=== PATIENT | female | born 1995 | race African-American/Black ===

== ENCOUNTER 2017-01-30 02:04 | Emergency (ER) | payer SELFPAY ==
[~2017-01-30] VITALS: Ht 165.1 cm; Wt 60.5 kg
[2017-01-30 02:14] VITALS: Ht 165.1 cm; Wt 60.5 kg
[2017-01-30 03:09] LABS: ADD SCAN DIFF NO
[2017-01-30 03:11] LABS: BASOPHIL # 0.1 10^3/ul (0.0-0.1); BASOPHILS % 0.5 % (0.0-2.0); EOSINOPHILS # 0.6 10^3/ul (0.0-0.5); EOSINOPHILS % 5.3 % (0.0-7.0); HEMOGLOBIN 13.6 g/dl (12.0-16.0); LYMPHOCYTES # 3.5 10^3/ul (0.8-2.9); LYMPHOCYTES % 32.7 % (15.0-51.0); MEAN CORPUSCULAR HEMOGLOBIN 31.6 pg (29.0-33.0); MEAN CORPUSCULAR HGB CONC 33.2 g/dl (32.0-37.0); MEAN CORPUSCULAR VOLUME 95.1 fl (82.0-101.0); MEAN PLATELET VOLUME 8.8 fl (7.4-10.4); MONOCYTE # 0.7 10^3/ul (0.3-0.9); MONOCYTES % 6.2 % (0.0-11.0); NEUTROPHIL # 5.8 10^3/ul (1.6-7.5); NEUTROPHILS % 55.1 % (39.0-77.0); PLATELET COUNT 407 10^3/UL (140-415); RED BLOOD COUNT 4.31 10^6/ul (4.20-5.40); RED CELL DISTRIBUTION WIDTH 11.9 % (11.5-14.5); WHITE BLOOD COUNT 10.6 10^3/ul (4.8-10.8)
--- NOTE | 2017-01-30 03:52 | RADRPT ---
PROCEDURE: Obstetrical ultrasound. CLINICAL INDICATION: Vaginal bleeding. TECHNIQUE: Multiple sonographic images of the pelvis were obtained utilizing a transabdominal and endovaginal technique. The images were reviewed on a PACS workstation. COMPARISON: None. FINDINGS: The uterus is visualized and measures 6.3 x 3.7 x 4.1 cm. No abnormal uterine mass is identified. T he endometrial echo complex is homogeneous and measures 5 mm. No intrauterine is identifie d. There is no evidence for free fluid. The right ovary has a normal echotexture and measures 3.5 x 2. 0 x 2.6 cm. The left ovary has a normal echotexture and measures 3.1 x 1.6 x 2.6 cm. There is norm al flow to both ovaries. No adnexal masses are identified. IMPRESSION: No intrauterine or extrauterine identified. Clinical beta-hCG correlation and follow-up i s recommended. Otherwise unremarkable pelvic ultrasound. .Armando Mitchell MD, Date Time Electronically viewed and signed by .Armando Mitchell MD, on 01/30/2017 03:52 .T/
--- NOTE | 2017-01-30 04:04 | ERD ---
ER Documentation Chief Complaint Date/Time DATE: 01/30/17 TIME: 04:01 Chief Complaint VAGINAL BLEEDING STARTED AT 11PM, PASSED BLOOD CLOTS X 2, 11 WEEKS HPI This is a 21-year-old female presents to the ER with vaginal bleeding that started 11 PM tonight. Patient states that she started passing blood clots. Patient is currently about 11 weeks , however she has not had any OB care. Her last normal menstrual period was back in September. Patient admits to pelvic cramping. She denies any other vaginal discharge. A2. Patient denies any urinary frequency or dysuria. ROS 12 point review of systems was done, all negative except per HPI. Medications Home Meds Active Scripts Cephalexin* (Keflex*) 500 Mg Capsule, 500 MG PO BID for 7 Days, CAP Prov:ADRIENNE ROMERO 01/30/17 Allergies Allergies: Coded Allergies: No Known Allergy (Unverified , 01/30/17) PMhx/Soc History of Surgery: Yes (appendectomy, umbilical hernia, c/section x1) Hx Alcohol Use: No Hx Substance Use: No Hx Tobacco Use: No Smoking Status: Never smoker Physical Exam Vitals Vital Signs Date Time Temp Pulse Resp B/P Pulse Ox O2 Delivery O2 Flow Rate FiO2 01/30/17 02:14 95.5 97 17 124/63 100 Physical Exam GENERAL: The patient is well developed and appropriate for usual state of health , in no apparent distress. HEENT: Atraumatic. CHEST: Clear to auscultation bilaterally. There are no rales, wheezes or rhonchi. HEART: Regular rate and rhythm. No murmurs, clicks, rubs or gallops. ABDOMEN: Soft, nontender and nondistended. Good bowel sounds. No rebound or guarding. No gross peritonitis. No gross organomegaly or masses. No Gomez sign or McBurney point tenderness. BACK: No midline or flank tenderness. NEURO: Alert and oriented. SKIN: There is no apparent rash or petechia. The skin is warm and dry. Result Diagram: 01/30/17 0301 Results 24 hrs Laboratory Tests Test 01/30/17 03:01 White Blood Count 10.610^3/ul Red Blood Count 4.3110^6/ul Hemoglobin 13.6g/dl Hematocrit 41.0% Mean Corpuscular Volume 95.1fl Mean Corpuscular Hemoglobin 31.6pg Mean Corpuscular Hemoglobin Concent 33.2g/dl Red Cell Distribution Width 11.9% Platelet Count 18249^3/UL Mean Platelet Volume 8.8fl Neutrophils % 55.1% Lymphocytes % 32.7% Monocytes % 6.2% Eosinophils % 5.3% Basophils % 0.5% Nucleated Red Blood Cells % 0.0/100WBC Neutrophils # 5.810^3/ul Lymphocytes # 3.510^3/ul Monocytes # 0.710^3/ul Eosinophils # 0.610^3/ul Basophils # 0.110^3/ul Nucleated Red Blood Cells # 0.010^3/ul Urine Color YELLOW Urine Clarity SLIGHTLY CLOUDY Urine pH 5.0 Urine Specific [place] 1.028 Urine Ketones TRACEmg/dL Urine Nitrite NEGATIVEmg/dL Urine Bilirubin NEGATIVEmg/dL Urine Urobilinogen NEGATIVEmg/dL Urine Leukocyte Esterase 3+Alena/ul Urine Microscopic RBC 4/HPF Urine Microscopic WBC 10/HPF Urine Squamous Epithelial Cells FEW/HPF Urine Mucus FEW/HPF Urine Hemoglobin 3+mg/dL Urine Glucose NEGATIVEmg/dL Urine Total Protein 1+mg/dl Beta HCG, Quantitative < 2.4mIU/ml Procedures/MDM Differential diagnosis: Threatened , missed , incomplete , ectopic , molar , UTI, pyelonephritis. This is a 21 -year-old female presents to the ER with vaginal bleeding. At this time there is no evidence of intrauterine gestation and her quantitative hCG is less than 2.4. Patient did have a urinary tract infection, should be treated with Keflex. At this time there is no evidence of pyelonephritis as patient is afebrile and well-appearing with no CVA tenderness. Patient does not appear to have a at this time. Patient needs to follow-up with her primary care doctor within 1-2 days return to ER sooner if symptoms worsen. My medical decision making sure with the patient she understands and agrees with plan. Departure Diagnosis: Primary Impression: Vaginal bleeding Condition: Stable Patient Instructions: Vaginal Bleed in Additional Instructions: Call your primary care doctor TOMORROW for an appointment during the next 1-2 days.See the doctor sooner or return here if your condition worsens before your appointment time. ADRIENNE ROMERO Jan 30, 2017 04:03
[2017-01-30 04:29] LABS: ADD UMIC YES; UR ASCORBIC ACID 40 mg/dL (NEGATIVE); UR BILIRUBIN (Dip) NEGATIVE (NEGATIVE); UR BLOOD (Dip) 3+ mg/dL (NEGATIVE); UR CLARITY SLIGHTLY CLOUDY (CLEAR); UR COLOR YELLOW (YELLOW); UR GLUCOSE (Dip) NEGATIVE (NEGATIVE); UR KETONES (Dip) TRACE mg/dL (NEGATIVE); UR LEUKOCYTE ESTERASE (Dip) 3+ Leu/ul (NEGATIVE); UR MUCUS FEW /HPF (NONE SEEN); UR NITRITE (Dip) NEGATIVE (NEGATIVE); UR RBC 4 /HPF (0-5); UR SPECIFIC GRAVITY (Dip) 1.028 (1.003-1.030); UR SQUAMOUS EPITHELIAL CELL FEW /HPF (FEW); UR TOTAL PROTEIN (Dip) 1+ mg/dl (NEGATIVE); UR UROBILINOGEN (Dip) NEGATIVE (NEGATIVE)
[2017-01-30] MEDS ORDERED: CEPH-443 PO (04:34)
[2017-01-30 06:51] LABS: UR BACTERIA FEW /HPF (NONE SEEN)
== END 2017-01-30 04:40 | disposition home or self-care (01) ==
LOC: FTE 02:04
DX: O20.9 Hemorrhage in early pregnancy, unspecified (principal); R10.2 Pelvic and perineal pain; Z3A.11 11 weeks gestation of pregnancy
CPT/HCPCS: 36415; 76801; 76817; 81001; 84702; 85025; 86900; 86901